=== PATIENT | female | born 1950 | race Caucasian/White ===

== ENCOUNTER 2023-12-28 21:28 | Inpatient (IN) | payer OTHER ==
[2023-12-28 22:34] LABS: HEMATOCRIT 34.3 % (32.4-45.2); HEMOGLOBIN 11.3 G/dL (10.7-15.3); MCH 28.6 pg (25.7-33.7); MCHC 32.8 g/dl (32.0-36.0); MEAN CELL VOLUME 87.1 fl (80-96); PLATELET COUNT 350.7 10^3/uL (134-434); RBC 3.94 10^6/uL (3.60-5.2)
[2023-12-28 22:57] LABS: ALBUMIN 3.8 g/dl (3.4-5.0); BILIRUBIN,TOTAL 0.3 mg/dl (0.2-1); CALCIUM 9.4 mg/dl (8.5-10.1); MAGNESIUM 1.9 mg/dL (1.8-2.4); PHOSPHOROUS 7.4 (2.5-4.9); TOT PROT 6.7 g/dl (6.4-8.2)
[2023-12-28 23:03] LABS: CREATININE 10.5 mg/dl (0.6-1.3)
[2023-12-28 23:04] LABS: POTASSIUM 5.1 mmol/L (3.5-5.1)
[2023-12-28] MEDS ORDERED: PIPERACILLIN/TAZOBACTAM 4.5 GM VIAL IVPB ONE (23:13)
[2023-12-28] MEDS: PIPERACILLIN/TAZOB 4.5 GM 4.5 GM in DEXTROSE 5%-WATER 100 ML IVPB ONE (23:19)
[2023-12-28] MEDS ORDERED: DOCUSATE SODIUM 100 MG CAPSULE (FP) PO PRN (23:50)
[2023-12-28] MEDS ORDERED: ACETAMINOPHEN 325 MG TABLET (FP) PO PRN (23:50)
[2023-12-29] MEDS ORDERED: ALBUTEROL SO4 2.5/IPRATROPIUM 0.5 INH SOL 3 ML VIAL.NEB. NEB PRN (01:10)
[2023-12-29 01:50] VITALS: BMI 30.7
[2023-12-29] MEDS: guaiFENesin/D-METHORPHAN TAB.ER.12H PO SCH (02:45)
[2023-12-29] MEDS ORDERED: ACETAMINOPHEN 325 MG TABLET (FP) PO PRN (09:33)
[2023-12-29] MEDS ORDERED: guaiFENesin/D-METHORPHAN HB 10 ML UNIT-DOSE CUPS PO PRN (09:36)
[2023-12-29 09:45] LABS: HEMATOCRIT 29.2 % (32.4-45.2); HEMOGLOBIN 9.8 GM/dL (10.7-15.3); MCH 28.4 pg (25.7-33.7); MCHC 33.6 g/dl (32.0-36.0); MEAN CELL VOLUME 84.5 fl (80-96); MEAN PLT VOLUME 6.8 fl (7.5-11.1); PLATELET COUNT 391 10^3/uL (134-434); RBC 3.45 M/mm3 (3.60-5.2); RDW 14.9 % (11.6-15.6); WHITE BLOOD COUNT 20.1 K/mm3 (4.0-10.0)
[2023-12-29] MEDS: PIPERACILLIN/TAZOB 2.25 GM 2.25 GM in DEXTROSE 5%-WATER - 50 ML IVPB SCH (09:48)
[2023-12-29] MEDS: BUDESONIDE/FORMETEROL FUMARATE 80/4.5 mcg INHALER IH SCH (09:48)
[2023-12-29] MEDS: ASPIRIN COATED 81 MG TABLET.EC PO SCH (09:49)
[2023-12-29] MEDS: HEPARIN NA (PORCINE) 5,000 UNITS/ML 1ML VIAL SQ SCH (09:49)
[2023-12-29] MEDS: metoPROLOL SUCCINATE 25 MG TAB.SR.24H (FP) PO SCH (09:49)
[2023-12-29] MEDS: CALCITRIOL 0.25 MCG CAPSULE (FP) PO SCH (09:49)
[2023-12-29] MEDS: LEVOTHYROXINE NA 100 MCG TABLET (FP) PO SCH (09:49)
[2023-12-29 09:51] LABS: INR 1.2 (0.83-1.09); PROTHROMBIN TIME (PATIENT) 13.5 SEC (9.7-13.0)
[2023-12-29 09:54] LABS: ACTIVATED PTT 29.4 SECONDS (25.2-36.5)
[2023-12-29] MEDS ORDERED: predniSONE 10 MG TABLET (UD) PO SCH (10:00)
[2023-12-29 10:19] LABS: ANISOCYTOSIS 0; MACROCYTOSIS 0
[2023-12-29 11:08] LABS: EPI CELLS 29 /uL (0-25.1); HYALINE CASTS 0 /uL (0-3.1); URINE APPEARANCE CLEAR; URINE BACTERIA 18 /uL (0-1359); URINE BILIRUBIN NEGATIVE (NEGATIVE); URINE COLOR YELLOW; URINE GLUCOSE (UA) TRACE (NEGATIVE); URINE KETONE NEGATIVE (NEGATIVE); URINE LEUK ESTERASE NEGATIVE (NEGATIVE); URINE NITRITE NEGATIVE (NEGATIVE); URINE PROTEIN 1+ (NEGATIVE); URINE RBC 14 /uL (0-23.9); URINE UROBILINOGEN 0.2 mg/dL (0.2-1.0); URINE WBC 6 /uL (0-25.8)
[2023-12-29] MEDS: FLUTICASONE PROP 0.05% 16 GM NASAL SPRAY NS SCH (14:10)
[2023-12-29] MEDS: CEFTRIAXONE 1 GM in DEXTROSE 5%-WATER - 50 ML IVPB ONE (14:10)
[2023-12-29] MEDS: LORATADINE 10 MG TABLET PO SCH (14:12)
[2023-12-29] MEDS: ALBUTEROL SO4 2.5/IPRATROPIUM 0.5 INH SOL 3 ML VIAL.NEB. NEB SCH ×2 (14:55→20:32)
[2023-12-29] MEDS: AZITHROMYCIN IVPB 500 MG/250 ML BAG IVPB SCH (15:41)
[2023-12-29] MEDS: PERITONEAL DIALYSIS 1.5% SOLN 2,500 ML IP SCH (20:16)
[2023-12-29] MEDS: ATORVASTATIN CA 20 MG TABLET (FP) PO SCH (21:48)
[2023-12-30 07:14] LABS: HEMATOCRIT 28.6 % (32.4-45.2); HEMOGLOBIN 9.4 GM/dL (10.7-15.3); MCH 27.9 pg (25.7-33.7); MCHC 32.9 g/dl (32.0-36.0); MEAN CELL VOLUME 84.6 fl (80-96); MEAN PLT VOLUME 6.8 fl (7.5-11.1); PLATELET COUNT 361 10^3/uL (134-434); RBC 3.39 M/mm3 (3.60-5.2); RDW 14.6 % (11.6-15.6); WHITE BLOOD COUNT 14.7 K/mm3 (4.0-10.0)
[2023-12-30 07:16] LABS: CHLORIDE 105 mmol/L (98-107); POTASSIUM 4.5 mmol/L (3.5-5.1); SODIUM 135 mmol/L (136-145)
[2023-12-30 07:22] LABS: CALCIUM 8.6 mg/dL (8.5-10.1)
[2023-12-30 07:23] LABS: ALBUMIN 2.6 g/dl (3.4-5.0); ANION GAP 12 mmol/L (4-13); CO2 18 mmol/L (21-32); GLUCOSE,RANDOM 102 mg/dL (74-106)
[2023-12-30 07:26] LABS: SGOT/AST 15 U/L (15-37); SGPT/ALT 27 U/L (13-61)
[2023-12-30 07:28] LABS: BILIRUBIN,TOTAL 0.6 mg/dL (0.2-1); TOT PROT 5.6 g/dl (6.4-8.2)
[2023-12-30 07:29] LABS: ALK PHOS 76 U/L (45-117)
[2023-12-30 07:41] LABS: BLOOD UREA NITROGEN 124.6 mg/dL (7-18); CREATININE 10.1 mg/dL (0.55-1.3)
[2023-12-30] MEDS ORDERED: DOCUSATE SODIUM 100 MG CAPSULE (FP) PO PRN (08:35)
[2023-12-30] MEDS ORDERED: ACETAMINOPHEN 325 MG TABLET (FP) PO PRN (08:35)
[2023-12-30] MEDS ORDERED: guaiFENesin/D-METHORPHAN HB 10 ML UNIT-DOSE CUPS PO PRN (08:35)
[2023-12-30] MEDS ORDERED: CEFTRIAXONE 1 GM in DEXTROSE 5%-WATER - 50 ML IVPB SCH (10:00)
[2023-12-30] MEDS ORDERED: PIPERACILLIN/TAZOB 2.25 GM 2.25 GM in DEXTROSE 5%-WATER - 50 ML IVPB SCH (10:00)
[2023-12-30] MEDS: metoPROLOL SUCCINATE 25 MG TAB.SR.24H (FP) PO SCH (10:14)
[2023-12-30] MEDS: CEFTRIAXONE 1 GM in DEXTROSE 5%-WATER - 50 ML IVPB SCH (10:14)
[2023-12-30] MEDS: ASPIRIN COATED 81 MG TABLET.EC PO SCH (10:15)
[2023-12-30] MEDS: CALCITRIOL 0.25 MCG CAPSULE (FP) PO SCH (10:15)
[2023-12-30] MEDS: LORATADINE 10 MG TABLET PO SCH (10:15)
[2023-12-30] MEDS: HEPARIN NA (PORCINE) 5,000 UNITS/ML 1ML VIAL SQ SCH (10:15)
[2023-12-30] MEDS: AZITHROMYCIN IVPB 500 MG/250 ML BAG IVPB SCH (10:16)
[2023-12-30] MEDS: BUDESONIDE/FORMETEROL FUMARATE 80/4.5 mcg INHALER IH SCH (10:53)
[2023-12-30] MEDS: FLUTICASONE PROP 0.05% 16 GM NASAL SPRAY NS SCH (15:55)
[2023-12-30] MEDS: ATORVASTATIN CA 20 MG TABLET (FP) PO SCH (21:21)
[2023-12-31 05:01] VITALS: RESP 18
[2023-12-31] MEDS: LEVOTHYROXINE NA 100 MCG TABLET (FP) PO SCH (06:02)
[2023-12-31 07:57] LABS: HEMATOCRIT 31.5 % (32.4-45.2); HEMOGLOBIN 10.4 GM/dL (10.7-15.3); MCH 28.2 pg (25.7-33.7); MCHC 32.9 g/dl (32.0-36.0); MEAN CELL VOLUME 85.7 fl (80-96); MEAN PLT VOLUME 6.7 fl (7.5-11.1); PLATELET COUNT 367 10^3/uL (134-434); RBC 3.68 M/mm3 (3.60-5.2); RDW 14.9 % (11.6-15.6); WHITE BLOOD COUNT 14.7 K/mm3 (4.0-10.0)
[2023-12-31 08:16] LABS: CHLORIDE 103 mmol/L (98-107); SODIUM 135 mmol/L (136-145)
[2023-12-31 08:19] LABS: CALCIUM 9.5 mg/dL (8.5-10.1)
[2023-12-31 08:20] LABS: ANION GAP 12 mmol/L (4-13); CO2 20 mmol/L (21-32); GLUCOSE,RANDOM 101 mg/dL (74-106); MAGNESIUM 1.8 mg/dL (1.8-2.4)
[2023-12-31 08:23] LABS: PHOSPHOROUS 8.6 mg/dL (2.5-4.9)
[2023-12-31 08:30] LABS: BLOOD UREA NITROGEN 105.1 mg/dL (7-18); CREATININE 9.4 mg/dL (0.55-1.3)
[2023-12-31] MEDS: SEVELAMER CARBONATE 800 MG TAB (FP) PO SCH (12:35)
[2023-12-31 13:09] VITALS: BP 110/51; PULSE 81; TEMP 98.1
== END 2023-12-31 14:56 | disposition home or self-care (01) | DRG 190 ==
LOC: FER 21:28 → J5S 12-29 01:01 → J4S 12-29 18:35
PROVIDERS: ADMIT Internal Medicine; ATTEND Internal Medicine
PROC: 3E1M39Z Irrigation of Peritoneal Cavity using Dialysate, Percutaneous Approach (ICD-10-PCS; principal; 2023-12-30)
DX: J44.0 Chronic obstructive pulmonary disease with (acute) lower respiratory infection (principal); N18.6 End stage renal disease; I12.0 Hypertensive chronic kidney disease with stage 5 chronic kidney disease or end stage renal disease; E85.9 Amyloidosis, unspecified; J20.9 Acute bronchitis, unspecified; J44.9 Chronic obstructive pulmonary disease, unspecified; Z99.2 Dependence on renal dialysis; E03.9 Hypothyroidism, unspecified; J45.909 Unspecified asthma, uncomplicated; I25.10 Atherosclerotic heart disease of native coronary artery without angina pectoris; F41.9 Anxiety disorder, unspecified; E78.5 Hyperlipidemia, unspecified
CPT/HCPCS: 36415; 71045-TC-FY; 71046-TC-FY; 80048; 80053; 81003; 82550; 83036; 83605; 83735; 84100; 84439; 84484; 85025; 85027; 85610; 85730; 87040; 87086; 87899; 93005; 94640; 99285-25; J1644